=== PATIENT | female | born 1975 | race Caucasian/White ===

== ENCOUNTER 2017-06-30 15:47 | Emergency (ER) | payer BC ==
[~2017-06-30] VITALS: Ht 162.6 cm; Wt 47.6 kg
[~2017-06-30 15:47] MED LIST: LEVO25TA9 PO
[2017-06-30 16:09] LABS: *BILIRUBIN,URIN NEGATIVE (NEGATIVE); *BLOOD, URINE NEGATIVE (NEGATIVE); *CLARITY,URINE SLIGHTLY CLOUDY (CLEAR); *COLOR,URINE YELLOW (YELLOW); *KETONES,URINE NEGATIVE (NEGATIVE); *PROTEIN,URINE NEGATIVE (NEGATIVE); LEUKOCYTE ESTERASE ,URINE TRACE (NEGATIVE); NITRITE, URINE NEGATIVE (NEGATIVE); UGLUCOSE NEGATIVE (NEGATIVE)
[2017-06-30 16:10] LABS: *URINE HCG, QUAL NEGATIVE (NEGATIVE)
[2017-06-30 16:25] LABS: BACTERIA,URINE MODERATE /HPF (NONE SEEN); SQUAMOUS EPITHELIAL CELL,UR MODERATE /HPF (NONE SEEN)
[2017-06-30 16:26] LABS: MUCUS,URINE MANY /LPF (0-FEW); URINE AMORPHOUS PHOSPHATES MODERATE /HPF
--- NOTE | 2017-06-30 16:48 | NUR ---
Female grounds/maintenance specialist accompanied female patient for ([facility] ). PT TOLORATED WELL.
[2017-06-30 16:58] VITALS: BP 144/69
--- NOTE | 2017-06-30 17:02 | NUR ---
Patient discharged to home in stable conditon. Written and verbal after care instructions given. Patient verbalizes understanding of instructions.
== END 2017-06-30 17:12 | disposition home or self-care (01) ==
LOC: ER 15:48
DX: T83.32XA Displacement of intrauterine contraceptive device, initial encounter (principal); E03.9 Hypothyroidism, unspecified; M19.90 Unspecified osteoarthritis, unspecified site; Y76.2 Prosthetic and other implants, materials and accessory obstetric and gynecological devices associated with adverse incidents
CPT/HCPCS: 76856; 81001; 84703; 99285; A4663

== ENCOUNTER 2021-12-07 09:19 | Emergency (ER) | payer BC, MEDICAID ==
[~2021-12-07] VITALS: Ht 165.1 cm; Wt 49.9 kg
[2021-12-07] MEDS: LORAZEPAM 0.5 MG TABLET PO ONE (09:59)
[2021-12-07] MEDS ORDERED: LORAZEPAM 0.5 MG TABLET ONE (10:02)
[2021-12-07 10:13] LABS: HEMATOCRIT 42.3 % (31.2-41.9); MEAN CORPUSCULAR HEMOGLOBIN 29.5 uug (24.7-32.8); MEAN CORPUSCULAR VOLUME 84.8 fL (75.5-95.3); PLATELET COUNT (AUTO) 283 K/uL (179-408)
[2021-12-07 10:20] LABS: CREATININE 0.8 mg/dL (0.6-1.3); POTASSIUM 3.7 mmol/L (3.5-5.1)
[2021-12-07] MEDS ORDERED: IOHEXOL 350 100 ML INFUS..BTL ONE (11:04)
[2021-12-07] MEDS ORDERED: SWABABLE VALVE TRANSFER SET EA MC ONE (11:04)
[2021-12-07] MEDS ORDERED: IV NORMAL SALINE 250 ML IV ONE (11:04)
== END 2021-12-07 13:34 | disposition home or self-care (01) ==
LOC: ER 09:21
DX: T54.2X1A Toxic effect of corrosive acids and acid-like substances, accidental (unintentional), initial encounter (principal); R00.2 Palpitations; R00.0 Tachycardia, unspecified; E04.1 Nontoxic single thyroid nodule; I34.1 Nonrheumatic mitral (valve) prolapse; E03.9 Hypothyroidism, unspecified; Z79.890 Hormone replacement therapy; Y92.019 Unspecified place in single-family (private) house as the place of occurrence of the external cause
CPT/HCPCS: 36415; 71045; 71275; 80048; 84439; 84443; 84484 ×2; 85025; 85379; 93005 ×2; 99285; Q9967; A4663

== ENCOUNTER 2025-07-31 18:23 | Emergency (ER) | payer SELFPAY ==
[~2025-07-31] VITALS: Ht 162.6 cm; Wt 47.6 kg
[2025-07-31 19:46] VITALS: BP 152/82
[2025-07-31 19:55] LABS: PLATELET COUNT (AUTO) 343 K/uL (179-408); RED BLOOD CELL COUNT(AUTO) 4.77 MIL/uL (3.63-4.92); RED CELL DISTRIBUTION WIDTH 12.7 % (12.3-17.7); WHITE BLOOD COUNT (AUTO) 7.1 K/uL (3.8-11.8)
[2025-07-31 20:02] LABS: CREATININE 0.4 mg/dL (0.6-1.3); SODIUM SERUM 141 mmol/L (136-145); UREA NITROGEN, BLOOD 7 mg/dL (7-18)
[2025-07-31 20:07] LABS: ASPARTATE AMINOTRANSFERASE 23 U/L (15-37); TOTAL PROTEIN, SERUM 7.6 g/dL (6.4-8.2)
[2025-07-31] MEDS ORDERED: AZIT250T13 PO (20:36)
[2025-07-31] MEDS ORDERED: POTASSIUM CHLORIDE 20 MEQ TAB.PRT.SR ONE ×2 (20:40→20:43)
[2025-07-31] MEDS: POTASSIUM CHLORIDE 20 MEQ TAB.PRT.SR PO ONE (20:58)
[2025-07-31 20:59] VITALS: BP 144/79; O2SAT 99
== END 2025-07-31 21:00 | disposition home or self-care (01) ==
LOC: ER 18:27
DX: J20.9 Acute bronchitis, unspecified (principal); I34.1 Nonrheumatic mitral (valve) prolapse; E87.6 Hypokalemia; E03.9 Hypothyroidism, unspecified; M19.90 Unspecified osteoarthritis, unspecified site; Z79.890 Hormone replacement therapy; Z20.822 Contact with and (suspected) exposure to COVID-19
CPT/HCPCS: 36415; 71045; 84443; 84484; 85025; A4606; A4663